=== PATIENT | female | born 1985 | race Caucasian/White ===

== ENCOUNTER → 2021-05-10 16:48 | Outpatient (CLI) | payer OTHER, SELFPAY ==
[2021-05-10 17:17] LABS: COVID19 -Nasal RAPID Negative (Negative)
== END ==
PROVIDERS: Visit Provider Nurse Practitioner
DX: Z20.822 Contact with and (suspected) exposure to COVID-19 (principal)
CPT/HCPCS: 87635

== ENCOUNTER 2021-05-10 17:20 | Emergency (ER) | payer OTHER, SELFPAY ==
[2021-05-10 17:41] VITALS: BP 119/71; PULSE 79; RESP 20; TEMP 37.6; O2SAT 100; BMI 23.1
--- NOTE | 2021-05-10 18:27 | ED_ITS ---
HPI - URI/Sore Throat General Chief Complaint: Upper Respiratory Symptoms Stated Complaint: Sore throat/Strep? Time Seen by Provider: 05/10/21 18:08 History of Present Illness HPI Narrative: Patient is a 35-year-old female who presents with 1 week of sore throat. She says most of with her family had something similar but they all got over it. She had fever on the 1st night but not since then. She vomited once the following day. Yesterday her throat got significantly worse. She feels like she is having a difficult time swallowing. She has noticed some changes in her voice. She was seen initially at the walk-in clinic concerned for peritonsillar abscess. She is strep positive and COVID negative. sHe denies any chest pain, cough, shortness of breath, abdominal pain or any other symptoms. Related Data Previous Rx's Medication Instructions Recorded amoxicillin 875 mg-potassium 1 tab PO Q12H #20 tab 05/10/21 clavulanate 125 mg tablet (Augmentin) prednisone 20 mg tablet 40 mg PO DAILY #10 tab 05/10/21 Allergies Allergy/AdvReac Type Severity Reaction Status Date / Time No Known Drug Allergies Allergy Unverified 05/10/21 16:46 Review of Systems Review of Systems Narrative: GENERAL: Denies chills, fatigue, malaise, fever, sweats, travel HEENT: see HPI RESPIRATORY: Denies dyspnea, cough, wheezing, hemoptysis, sputum. CARDIOVASCULAR: Denies chest pain, palpitations, orthopnea, edema GASTROINTESTINAL: Denies nausea, vomiting, abdominal pain, diarrhea, constipati on, melena. : Denies dysuria, frequency, incontinence, hematuria, urinary retention, flank pain. MUSCULOSKELETAL: Denies weakness, joint pain, or bony pain SKIN: No rash, no erythema, no pruritus NEUROLOGIC: Denies weakness, dizziness, headache, numbness, change in speech, confusion PSYCHIATRIC: No concerning psychosocial issues. 12 point review of systems is negative except for those stated above and HPI Patient History Social History Smoking Status: Never smoker Smoking Status: Never smoker Exam Initial Vital Signs Initial Vital Signs: Vital Signs Temperature 99.7 F H 05/10/21 17:41 Pulse Rate 79 05/10/21 17:41 Respiratory Rate 20 05/10/21 17:41 Blood Pressure 119/71 05/10/21 17:41 Pulse Oximetry 100 05/10/21 17:41 GENERAL: 35-year-old female appears to not feel well and in no acute distress. HEENT: Head atraumatic,EOMI, pupils reactive, face symmetric, moist mucous membranes PHARYNX: Left peritonsillar abscess noted mild uvula deviation protecting airway, managing secretions without difficulty. Cervical lymphadenopathy present the left side Neck is supple no meningeal signs CARDIOVASCULAR: Regular rate and rhythm without murmurs, rubs or gallops. RESPIRATORY: Breath sounds equal bilaterally, no wheezes rales or rhonchi. ABDOMEN: Soft, nontender. Normoactive bowel sounds all 4 quadrants. No guarding or rebound. EXTREMITIES: Normal range of motion, no clubbing or edema. Neurovascularly intact NEUROLOGICAL: Alert and oriented x4.Normal gait and speech. SKIN: Warm, dry, no laceration, no petechiae, no rashes or lesions. Course Orders Ordered: ED Orders 05/10/21 18:55 Complete Blood Count AUTO DIFF Stat Comprehensive Metabolic Panel Stat Lactate (Lactic Acid) Stat 05/10/21 19:05 Blood Culture Stat Discontinued Medications Sodium Chloride (Normal Saline 0.9%) 1,000 mls @ 1,000 mls/hr IV BOLUS ONE Stop: 05/10/21 19:30 Last Infusion: 05/10/21 22:02 Dose: 0 mls/hr Documented by: Admin: 05/10/21 19:15 Dose: 1,000 mls/hr Documented by: ORA Dexamethasone 20 mg/ Sodium (Chloride) 52 mls @ 208 mls/hr IV NOW ONE Stop: 05/10/21 18:32 Last Infusion: 05/10/21 19:54 Dose: 0 mls/hr Documented by: Admin: 05/10/21 19:16 Dose: 208 mls/hr Documented by: ORA Ampicillin Sodium/Sulbactam (Sodium 3 gm/ Sodium Chloride) 100 mls @ 100 mls/hr IV NOW ONE Stop: 05/10/21 18:32 Last Infusion: 05/10/21 20:42 Dose: 0 mls/hr Documented by: Admin: 05/10/21 19:21 Dose: 100 mls/hr Documented by: ORA Vital Signs Vital signs: Vital Signs - 8 hr 05/10/21 22:30 Pulse Rate 74 Respiratory Rate 16 Blood Pressure 97/55 L Pulse Oximetry 100 MDM - URI/Sore Throat Lab Data Result diagrams: 05/10/21 18:55 05/10/21 18:55 Labs: Lab Results 05/10/21 05/10/21 05/10/21 Range/Units 18:55 18:55 18:55 WBC 9.5 (4.5-11.0) X10^3/uL RBC 4.18 (4.0-5.2) X10^6/uL Hgb 13.1 (12.0-16.0) g/dL Hct 38.9 (36-46) % MCV 93.0 (80-100) fL MCH 31.3 (26-34) PG MCHC 33.6 (30-36) % RDW 14.5 (11.6-14.8) % Plt Count 232 (150-400) X10^3/uL Neut % (Auto) 73.4 (50-75) % Lymph % (Auto) 13.4 L (25-40) % [place] % (Auto) 11.1 (3-14) % Eos % (Auto) 1.9 L (2-4) % Baso % (Auto) 0.2 (0-2) % Neut # (Auto) 7000 (5386-2983) /uL Lymph # (Auto) 1300 (9221-2664) /uL [place] # (Auto) 1100 H (0-900) /uL Eos # (Auto) 200 (0-450) /uL Baso # (Auto) 0 (0-100) /uL Sodium 139 (137-145) mmol/L Potassium 4.0 (3.4-5.1) mmol/L Chloride 104 (98-107) mmol/L Carbon Dioxide 25 (22-32) mmol/L BUN 6 L (7-17) mg/dL Creatinine 0.58 (0.52-1.04) mg/dL Estimated GFR > 60.0 (>60) mL/min BUN/Creatinine Ratio 10.3 (6-22) Glucose 90 (70-100) mg/dL Lactate 0.9 (0.7-2.1) mmol/L Calcium 9.7 (8.4-10.2) mg/dL Total Bilirubin 0.5 (0.2-1.3) mg/dL AST 29 (14-36) IU/L ALT 17 (<35) IU/L Alkaline Phosphatase 74 (38-126) U/L Total Protein 8.2 (6.3-8.2) g/dL Albumin 4.5 (3.5-5.0) g/dL Globulin 3.7 (1.7-4.1) g/dL Albumin/Globulin Ratio 1.2 (1.0-2.8) MDM Narrative Medical decision making narrative: Patient has an obvious left-sided peritonsillar abscess but no airway compromise at this time. After fluids dexamethasone antibiotic she is overall feeling significantly better and feels like the swelling has gone down. Had discussion with her of draining versus medical management. This time she would like to hold off drainage and proceed with medical management. We discussed warning signs and possible airway compromise. We also discussed it is imperative for her to follow-up with ENT. [place] from [place] I am unable to arrange ENT follow-up for her, however she has established primary care provider. I will give her antibiotics and steroids to go home with. I have instructed her to go to the nearest emergency department if she should have any new or worsening symptoms Discharge Plan Departure Patient Disposition: Home Clinical Impression: Peritonsillar abscess Instructions: DI for Peritonsillar Abscess -- Adult Activity Restrictions/Additional Instructions: Peritonsillar abscess You have an abscess in her throat which can cause airway compromise, increased difficulty breathing You are feeling better which is a good sign. It is very important that you follow-up with ENT this week. Please call your primary care to help arrange this. If this continues to worsen it will need to be drained. Continue to stay hydrated and take antibiotics as directed Augmentin 875 mg twice a day for 7 days Prednisone 40 mg once daily for 5 days Return to emergency department if you should have difficulty swallowing, difficulty breathing, change in voice, or any new or worsening symptoms Prescriptions: New amoxicillin-pot clavulanate [Augmentin] 875-125 mg tablet 1 tab PO Q12H Qty: 20 RF: 0 prednisone 20 mg tablet 40 mg PO DAILY Qty: 10 RF: 0
[2021-05-10 19:00] LABS: Add Manual Diff / Slide Review NO; Basophils Absolute Auto 0 /uL (0-100); Basophils Percent Auto 0.2 % (0-2); Eosinophils Absolute Auto 200 /uL (0-450); Eosinophils Percent Auto 1.9 % (2-4); Hematocrit 38.9 % (36-46); Hemoglobin 13.1 g/dL (12.0-16.0); Lymphocytes Absolute Auto 1300 /uL (1100-4500); Lymphocytes Percent Auto 13.4 % (25-40); Mean Corpuscular HGB Conc 33.6 % (30-36); Mean Corpuscular Hemoglobin 31.3 PG (26-34); Monocytes Absolute Auto 1100 /uL (0-900); Monocytes Percent Auto 11.1 % (3-14); Neutrophils Absolute Auto 7000 /uL (1500-7000); Neutrophils Percent Auto 73.4 % (50-75); Platelet Count 232 X10^3/uL (150-400); Red Blood Cell Count 4.18 X10^6/uL (4.0-5.2); Red Cell Distribution Width 14.5 % (11.6-14.8); White Blood Cell Count 9.5 X10^3/uL (4.5-11.0)
[2021-05-10] MEDS: SODIUM CHLORIDE 0.9% 1,000 ML 1000 ML IV (19:15)
[2021-05-10] MEDS: dexAMETHasone 20 MG in SODIUM CHLORIDE 0.9% 50 ML 208 ML IV (19:16)
[2021-05-10 19:20] LABS: Lactate (Lactic Acid) 0.9 mmol/L (0.7-2.1)
[2021-05-10 19:21] LABS: Alanine Aminotransferase 17 IU/L (<35); Albumin 4.5 g/dL (3.5-5.0); Albumin Globulin Ratio 1.2 (1.0-2.8); Alkaline Phosphatase 74 U/L (38-126); Aspartate Aminotransferase 29 IU/L (14-36); BUN Creatinine Ratio 10.3 (6-22); Bilirubin Total 0.5 mg/dL (0.2-1.3); Blood Urea Nitrogen 6 mg/dL (7-17); Calcium 9.7 mg/dL (8.4-10.2); Carbon Dioxide 25 mmol/L (22-32); Chloride 104 mmol/L (98-107); Estimated Glomerular Filt Rate > 60.0 mL/min (>60); Globulin 3.7 g/dL (1.7-4.1); Glucose 90 mg/dL (70-100); HEMOLYSIS < 15 (0-50); Sodium 139 mmol/L (137-145); Total Protein 8.2 g/dL (6.3-8.2)
[2021-05-10] MEDS: AMPICILLIN/SULBACTAM 3 GM 3 GM in SODIUM CHLORIDE 0.9% 100 ML IV (19:21)
[2021-05-10 22:30] VITALS: BP 97/55; PULSE 74; RESP 16; O2SAT 100
== END 2021-05-10 21:51 | disposition home or self-care (01) ==
PROVIDERS: Emergency Provider Emergency Medicine
DX: J36 Peritonsillar abscess (principal); R50.9 Fever, unspecified
CPT/HCPCS: 36415; 80053; 83605; 85025; 87040; 96365; 96368; 99284; J0295; J1100